=== PATIENT | male | born 1950 | race Caucasian/White ===

== ENCOUNTER 2019-03-30 20:56 | Inpatient (IN) | payer MEDICARE, SELFPAY ==
--- NOTE | ~2019-03-30 | XR_ITS ---
XR chest 1V portable 03/30/2019 22:05 Indication: Shortness of breath, vomiting Procedure: AP view of the chest Comparison: Comparison to multiple prior studies sequentially, with oldest reviewed study dated 01/27. Findings: Status post median sternotomy for CABG. Cardiomegaly. Small right pleural effusion. Right b asilar airspace disease may represent atelectasis or pneumonia. No pneumothorax. Impression: 1: Right basilar airspace disease, atelectasis versus pneumonia. 2: Small right pleural effusion. Reviewed, dictated and finalized at location A. EWATER ENGINEER Impression: 1: Right basilar airspace disease, atelectasis versus pneumonia. 2: Small right pleural effusion.
--- NOTE | ~2019-03-30 | US_ITS ---
US right upper quadrant, US paracentesis abd w/image INDICATION: Elevated liver function tests. Hepatic steatosis. Ascites. PROCEDURE: Realtime right upper abdominal ultrasound. COMPARISON: No prior studies for comparison. FINDINGS: The pancreas is normal without focal mass or pancreatic ductal dilation. Liver echotexture is increased, consistent with fatty infiltration. There is normal directional flow in the portal ve in. There is a small amount of ascites no fluid collections large enough for paracentesis. Gallbladder surgically absent. Common bile duct measures 4.8 mm. IMPRESSION: 1: Hepatic steatosis. 2: Status post cholecystectomy. 3: Small amount of ascites. Volume insufficient for paracentesis. Consider recheck of fluid and 3-4 d ays. Reviewed, dictated and finalized at location A. CARRIER MAINTENANCE INSPECTOR IMPRESSION: 1: Hepatic steatosis. 2: Status post cholecystectomy. 3: Small amount of ascites. Volume insufficient for paracentesis. Consider rech petrona of fluid and 3-4 days.
--- NOTE | ~2019-03-30 | XR_ITS ---
XR chest 2V 04/01/2019 12:23 Indication: Cough Procedure: 2 view chest Comparison: Comparison to multiple prior studies sequentially, with oldest reviewed study dated 02/13. Findings: Status post median sternotomy for CABG. Right basilar airspace disease. Bilateral pleural e ffusions, right greater than left. Cardiomegaly. There is a coronary stent. Impression: 1: Right basilar airspace disease, pneumonia versus atelectasis. 2: Small pleural effusions, right greater than left. 3: Cardiomegaly. Reviewed, dictated and finalized at location A. ANICAL SOUND TECHNICIAN Impression: 1: Right basilar airspace disease, pneumonia versus atelectasis. 2: Small pleural effusions, right greater than left. 3: Cardiomegaly.
--- NOTE | ~2019-03-30 | CT_ITS ---
EXAMINATION: CT abdomen pelvis w con DATE: 03/30/2019 21:56 INDICATION: Abdominal pain with nausea and vomiting TECHNIQUE: Computed tomography (CT) of the abdomen and pelvis was performed with 100 cc Omnipaque 350 intravenous contrast. The dose-length product was 951.86 mGy-cm. Automated exposure control and iter ative reconstruction technique were employed. COMPARISON: CT dated 01/28/2017 FINDINGS: Moderate right and small left pleural effusions. There is underlying compressive atelectasi s. Status post median sternotomy for CABG. No evidence for aortic aneurysm. There is moderate ascites. There is diffuse hepatic steatosis. There are calcified granulomas of the spleen. The pancreas, adrenal glands and right kidney are unremarkable. There is a 3 cm left renal [address]. Status post cholecystectomy. No free air identified. No lymphadenopathy. There is posterior spinal fu jefferson at L4-S1. IMPRESSION: 1. Moderate right and small left pleural effusions. Bibasilar compressive atelectasis. 2: Moderate ascites. 3: Hepatic steatosis. 4: Cardiomegaly. Surgical changes are seen consistent with CABG. Reviewed, dictated and finalized at location A. LE DATA WAREHOUSE DEVELOPER IMPRESSION: 1. Moderate right and small left pleural effusions. Bibasilar compressive atele ctasis. 2: Moderate ascites. 3: Hepatic steatosis. 4: Cardiomegaly. Surgical changes are seen consistent with CABG.
--- NOTE | ~2019-03-30 | US_ITS ---
EXAMINATION: US carotid duplex BI DATE: 03/31/2019 15:47 INDICATION: Abnormal examination. Atherosclerosis. TECHNIQUE: Grayscale, color Doppler, and pulsed Doppler images of the cervical carotid arteries were obtained. The degree of vessel stenosis is placed in one of the following categories: normal, <50%, 5 0-69%, >=70% but less than near-occlusion, near-occlusion, or total occlusion. Note that percent sten osis relative to normal distal artery lumen diameter is indirectly measured from velocity measurement s as described by Jalil, et al. Radiology 2003; 229:340-346. Notes: Normal: Peak systolic velocity <125 centimeters/sec and no plaque <50%. Peak systolic velocity <125 ( EDV <40; ICA/CCA PSV ratio <2.0; used these factors only a tandem lesions or low cardiac output or co ntralateral disease) 50-69 %: PSV 125-230 (EDV 40-100; ratio 2-4) >= 70% but less than near occlusion: PSV greater than 230 (EDV > 100; ratio> 4.0) Near Occlusion: PSV that is variable; markedly narrowed lumen Occlusion: Absent flow on color/spectral Doppler and no lumen on hernandez scale. COMPARISON: No prior studies for comparison FINDINGS: RIGHT: The right common carotid artery (CCA) peak systolic velocity (PSV) is 60 cm/s. The right internal car otid artery (ICA) PSV is 57 cm/s. The right ICA end-diastolic velocity (EDV) is 0 cm/s. The right ICA /CCA PSV ratio is 0.9. The external carotid artery (ECA) PSV is 110 cm/s. There is antegrade flow in the right vertebral artery. LEFT: The left CCA PSV is 74 cm/s. The left ICA PSV is 83 cm/s. The left ICA EDV is 11 cm/s. The left ICA/C CA PSV ratio is 1.1. The ECA PSV is 102 cm/s. There is antegrade flow in the left vertebral artery. IMPRESSION: 1. Less than 50% stenosis in the right internal carotid artery by sonographic criteria. 2. Less than 50% stenosis in the left internal carotid artery by sonographic criteria. Reviewed, dictated and finalized at location A. OMER SERVICE CONSULTANT IMPRESSION: 1. Less than 50% stenosis in the right internal carotid artery by sonographic dane ornelas. 2. Less than 50% stenosis in the left internal carotid artery by sonographic talib bernal.
--- NOTE | ~2019-03-30 | XR_ITS ---
XR abdomen obstructive series 04/01/2019 12:23 Indication: Abdominal distention Procedure: Supine and upright views of abdomen Comparison: 12/16/2008 Findings: There is residual contrast in the kidneys from CT dated 03/30/2019. Correlate clinically fo r renal failure. There are laminectomy and fusion changes at L5-S1. There is a small amount of residu al contrast in the bladder. Bowel pattern is nonobstructive. There is a right pleural effusion. Right basilar airspace consolidation. Impression: 1: Nonobstructive bowel gas pattern. 2: Residual contrast in the kidneys from previous CT. Correlate clinically for renal failure. 3: Right basilar airspace disease which may represent pneumonia or atelectasis. 4: Small right pleural effusion. Reviewed, dictated and finalized at location A. ITY CONTROL EXPERT Impression: 1: Nonobstructive bowel gas pattern. 2: Residual contrast in the kidneys from previous CT. Correlate clinically for renal failure. 3: Right basilar airspace disease which may represent pneumonia or atelectasis . 4: Small right pleural effusion.
[2019-03-30 21:08] VITALS: PULSE 65; RESP 22; TEMP 36.1; O2SAT 100
--- NOTE | 2019-03-30 21:08 | ECG_ITS ---
Measurements Intervals [place] Rate: 60 P: 62 VT: 241 QRS: 216 QRSD: 178 T: 31 QT: 477 QTc: 480 Interpretive Statements SINUS RHYTHM WITH FIRST DEGREE AV BLOCK RIGHT BUNDLE BRANCH BLOCK BASELINE ARTIFACT- AVR, AVL, AVF, V4 ABNORMAL ECG Electronically Signed On 03-31-2019 7:33:51 PROMOTIONS DIRECTOR by Giacomo Reich D.O.
--- NOTE | 2019-03-30 21:09 | ED.GENADULT ---
HPI - General Adult General Chief complaint: Nausea/Vomiting/Diarrhea Stated complaint: SOB, VOMITING Time Seen by Provider: 03/30/19 21:06 Source: patient and RN notes reviewed Mode of arrival: ambulatory Limitations: no limitations History of Present Illness HPI narrative: Pt is a 68 y/o male presenting to the ED c/o N/V. Pt reports he started experiencing N/V around 1700 this evening. Pt also reports SOB, but denies diarrhea or abdominal pain. Pt states his last BM was at 0300 this afternoon. Pt notes he sees Dr. Jerome as his PCP and denies being a smoker. Onset (ago): hour(s) (4.25) Associated symptoms: shortness of breath Related Data Home Medications Medication Instructions Recorded Confirmed amlodipine 10 mg PO DAILY 03/31/19 03/31/19 atorvastatin 80 mg PO HS 03/31/19 03/31/19 carbamazepine 200 mg PO Q12H 03/31/19 03/31/19 carvedilol 25 mg PO BID 03/31/19 03/31/19 clopidogrel 75 mg PO DAILY 03/31/19 03/31/19 empagliflozin [Jardiance] 10 mg PO EVERY OTHER DAY 03/31/19 03/31/19 fenofibrate 160 mg PO DAILY 03/31/19 03/31/19 furosemide 40 mg PO BID 03/31/19 03/31/19 isosorbide mononitrate 60 mg PO DAILY 03/31/19 03/31/19 lisinopril 40 mg PO QPM 03/31/19 03/31/19 metformin 500 mg PO BID 03/31/19 03/31/19 nitroglycerin 0.4 mg SUBLINGUAL Q5M PRN 03/31/19 03/31/19 rivaroxaban [Xarelto] 20 mg PO QPM 03/31/19 03/31/19 Allergies Allergy/AdvReac Type Severity Reaction Status Date / Time latex Allergy Unknown Unknown Verified 03/30/19 21:16 Review of Systems Review of Systems: All systems reviewed & are unremarkable except as noted in HPI and below Respiratory: Respiratory: Reports dyspnea Gastrointestinal: Gastrointestinal: Denies abdominal pain, Denies diarrhea, Reports nausea and Reports vomiting PMFSH Past Medical History Medical History (Updated 03/31/19 @ 01:03 by Levi Ortiz DO) Arthritis (Acute) Atrial fibrillation (Acute) CAD (coronary artery disease) (Acute) Cataracts, bilateral (Acute) CHF (congestive heart failure) (Acute) Depression (Acute) Diabetes mellitus (Acute) Eczema (Acute) Glaucoma (Acute) HLD (hyperlipidemia) (Acute) HTN (hypertension) (Acute) Kidney stones (Acute) Myocardial infarct (Acute) Pneumonia (Acute) Rectal polyp (Acute) Seasonal allergies (Acute) Seizures (Acute) Skin cancer (Acute) Sleep apnea (Acute) Ulcer (Acute) Surgical History Surgical History (Updated 03/30/19 @ 21:19 by Matt Conn) H/O heart artery stent (Acute) H/O Spinal surgery (Acute) History of cholecystectomy (Acute) Hx of CABG (Acute) Hx of tonsillectomy (Acute) Family History Family History (Updated 03/31/19 @ 00:58 by Ruby Cortes RN) Sibling Family history of diabetes mellitus in first degree relative Father Heart disease Acute myocardial infarction Hypertension Mother Breast cancer Social History Social History (Updated 03/30/19 @ 21:20 by Matt Conn) Smoking packs per day: 1 Smoking cigarettes per day: 20.0 Years smoked: 40 Smoking pack-years: 40.00 Smoking status: Former smoker Second hand tobacco smoke exposure: Yes Alcohol intake: current Exam Narrative: Exam Narrative: APPEARANCE: No acute distress, nontoxic, resting in bed EYES: EOMI HEENT: Normocephalic, atraumatic, OMM crackles in the bilateral lung bases, no wheezing clear to auscultation bilaterally with no rhonchi wheezing or rales. CARDIOVASCULAR: Regular rate and rhythm without murmurs rubs or gallops. ABDOMINAL: Soft, tender to palpation in right upper quadrant right lower quadrant, no tenderness left upper quadrant left lower quadrant MUSCULOSKELETAl: Moves all extremities. No clubbing, cyanosis 3+ edema in the bilateral lower extremities NEURO: Awake and alert. Following commands, speech normal, no focal deficits SKIN:: Warm, dry. No rashes lesions or abrasions PSYCHIATRIC: Normal affect/mood, Course Course Emergency Course: Reviewed old records Discussed with patient and family
[2019-03-30] MEDS: ONDANSETRON INJ 4 MG/2 ML VIAL IV PUSH (21:23)
[2019-03-30 21:24] LABS: Basophils Absolute Auto 0.1 K/mm3 (0.0-0.1); Basophils Percent Auto 1.1 % (0.2-1.2); Eosinophils Absolute Auto 0.3 K/mm3 (0-0.3); Eosinophils Percent Auto 3.2 % (0-4.4); Hematocrit 48.6 % (42.0-52.0); Hemoglobin 15.6 g/dL (14.0-18.0); Immature Granulocyte Absolute 0.03 K/mm3 (0.00-0.031); Immature Granulocyte Percent A 0.3 % (0-0.5); Lymphocytes Absolute Auto 1.36 K/mm3 (0.9-3.2); Mean Corpuscular HGB Conc 32.1 g/dl (32-36); Mean Corpuscular Hemoglobin 29.5 pg (26-34); Mean Corpuscular Volume 91.9 fl (80-100); Mean Platelet Volume 12.4 fl (7.4-10.4); Monocytes Absolute Auto 1.2 K/mm3 (0.1-0.6); Monocytes Percent Auto 12.6 % (2.6-8.5); Neutrophils Absolute Auto 6.7 K/mm3 (1.3-6.7); Neutrophils Percent Auto 68.8 % (45.5-73.1); Platelet Count Result 296 k/mm3 (150-375); Red Blood Count 5.29 M/mm3 (4.6-6.20); Red Cell Distribution Width 16.6 % (11.5-14.5); White Blood Count 9.7 K/mm3 (4.5-10.0)
[2019-03-30] MEDS: SODIUM CHLORIDE 0.9% IV 1,000 ML 999 ML IV CONT (21:24)
[2019-03-30 21:36] LABS: Alanine Aminotransferase 61 U/L (4-50); Albumin Level 4.1 g/dL (3.5-5.1); Alkaline Phosphatase 126 U/L (38-126); Aspartate Amino Transferase 154 U/L (17-59); Bilirubin,Total 1.3 mg/dL (0.2-1.3); Blood Urea Nitrogen 26 mg/dL (9-20); Calcium 9.2 mg/dL (8.4-10.2); Carbon Dioxide 25 mmol/L (22-30); Chloride 98 mmol/L (98-107); Estimated CRCL calculation 34 ml/min; Estimated Glomerular Filt Rate 43; Glucose 127 mg/dL (75-110); Lipase 183 U/L (23-300); Sodium 139 mmol/L (137-145)
[2019-03-30 21:37] LABS: INR 1.7; Prothrombin Time 19.7 Seconds (11.1-14.7)
[2019-03-30 21:38] LABS: Partial Thromboplastin Time 29.2 SECONDS (22.3-36.8)
[2019-03-30 21:46] LABS: Add Urine Microscopic? YES; Appearance Urine Clear (Clear); Bacteria Urine Trace /hpf; Bilirubin Urine Negative (Negative); Blood Urine Negative (Negative); Color Urine Yellow (Yellow); Glucose Urine UA 3+ mg/dL (Negative); Hyaline Casts Urine 30-49 /lpf; Ketones Urine Negative (Negative); Leukocyte Esterase Ur Negative LEU/UL (Negative); Mucus Urine Rare /lpf; Nitrate Urine Negative (Negative); Protein Urine 2+ mg/dL (Negative); RBC Urine 0-2 /hpf (0-2); Squamous Epithelial Cell Urine Rare /hpf (Few); WBC Urine 0-3
[2019-03-30 21:51] LABS: Troponin I 0.039 ng/mL (0.000-0.034)
[2019-03-30 22:18] VITALS: BP 106/61; PULSE 60; RESP 20; O2SAT 92
[2019-03-30 22:22] LABS: NT Pro B Type Natriuretic Pept 14000 PG/ML (5-100)
[2019-03-30 23:11] VITALS: BP 102/51; PULSE 62; RESP 20; O2SAT 85
[2019-03-30 23:12] VITALS: PULSE 62; RESP 20; O2SAT 96
[2019-03-30] MEDS: FUROSEMIDE INJ 40 MG/4 ML VIAL IV PUSH (23:16)
[2019-03-30] MEDS: ASPIRIN 81 MG CHEWABLE TABLET 324 MG PO (23:16)
[2019-03-30 23:44] VITALS: BP 102/51; PULSE 63; RESP 22; O2SAT 96
[2019-03-31] VITALS (19 sets, daily range): BP systolic 98–109; BP diastolic 53–61; PULSE 53–67; RESP 16–20; TEMP 36.1–37.3; O2SAT 96–99; BMI 29.2
--- NOTE | 2019-03-31 | ECHO_ITS ---
Patient Info Name: Landon Xiong Age: 68 years : 1950 Gender: Male Ht: 65 in Wt: 175 lbs BSA: 1.93 m2 HR: 66 bpm BP: 109 / 61 mmHg Technical Quality: Excellent Exam Date: 03/31/2019 12:49 PM Exam Location: [facility] Patient Status: Inpatient Admit Date: 03/30/2019 Staff Ordering Physician: Yuval Choudhury MD [employer] Police Officer: Rita Dennis RDCS Attending Provider: Yuval Choudhury MD Exam Type: CA echo dop color flow w con Study Info Indications I50.22 - Chronic systolic (congestive) heart failure Complete two-dimensional, color flow and Doppler transthoracic echocardiogram is performed with contrast to opacify the left ventricle and to improve the deliniation of the left ventricle endocardial borders. Contrast/Agitated Saline Contrast/Ag. Saline: Definity Amount: 2.00 ml Administered By: Ariane Mar RN IV Access Condition: patent with no signs of infiltration Site Condition: No extravasation Prior Interventions CABG: Yes Summary 1. Patient has prior CABG. 2. Left ventricular systolic function is severely reduced, estimated at 20-25%. 3. Global hypokinesia and Akinesia of inf \T\ inferolaterall mack and apical anterolateral wall. 4. Right ventricular chamber dimension is enlarged. 5. Right ventricular systolic function is reduced. 6. Left atrial chamber dimension is severely enlarged. 7. There is moderate aortic valve regurgitation. 8. There is moderate tricuspid valve regurgitation. 9. Mild pulmonary hypertension, estimated pulmonary arterial systolic pressure is 45 mmHg. 10. Dilated inferior vena cava with >50% collapse upon inspiration consistent with elevated right atrial pressure, 10 mmHg. Left Ventricle Left ventricular chamber dimension is mildly enlarged. Left ventricular systolic function is severely reduced, estimated at 20-25%. There is no increased left ventricular wall thickness. The left ventricular diastolic function is grade III diastolic dysfunction. Global hypokinesia and Akinesia of inf \T\ inferolaterall mack and apical anterolateral wall. Right Ventricle Right ventricular chamber dimension is enlarged. Right ventricular systolic function is reduced. Left Atria Left atrial chamber dimension is severely enlarged. Right Atria Right atrial chamber dimension is enlarged. Aortic Valve The aortic valve is trileaflet. There is mild aortic valve sclerosis. There is no aortic valve stenosis. There is moderate aortic valve regurgitation. Pulmonic Valve The pulmonic valve is normal. There is no pulmonic valve stenosis. There is no pulmonic regurgitation. Mitral Valve The mitral valve has normal leaflets. There is no mitral valve stenosis. There is mild mitral valve regurgitation. Tricuspid Valve The tricuspid valve leaflets are normal. There is no significant tricuspid valve stenosis. There is moderate tricuspid valve regurgitation. Mild pulmonary hypertension, estimated pulmonary arterial systolic pressure is 45 mmHg. Pericardium/Pleural The pericardium appears normal. There is no pericardial effusion. Inferior Vena Cava Dilated inferior vena cava with >50% collapse upon inspiration consistent with elevated right atrial pressure, 10 mmHg. Aorta The aortic root size at the sinus of Valsalva is normal. The prox ascending aorta size is normal. Left Ventricular Outflow Tract
--- NOTE | 2019-03-31 01:00 | PC.NURSE ---
This patient, Landon Xiong, was admitted to IMU Room 207-01, arrived at 0000 03/31/19 Patient oriented to hospital policies and general routines including ID bracelet, bed and alarms, visiting hours, pain management, procedures, bathroom and other care routines, personal items, smoking policy, room service/diet, and visiting hours. Valuables list has been completed. Patient encouraged to report perceived risks to care and to ask questions if they do not understand what they are told or what they should do.
[2019-03-31 02:21] LABS: Troponin I 0.044 ng/mL (0.000-0.034)
[2019-03-31 03:48] LABS: Basophils Percent Auto 0.3 % (0.2-1.2); Eosinophils Percent Auto 0.1 % (0-4.4); Immature Granulocyte Absolute 0.05 K/mm3 (0.00-0.031); Immature Granulocyte Percent A 0.5 % (0-0.5); Lymphocytes Absolute Auto 0.82 K/mm3 (0.9-3.2); Lymphocytes Percent Auto 7.9 % (18.3-44.2); Mean Corpuscular HGB Conc 32.5 g/dl (32-36); Mean Corpuscular Hemoglobin 29.3 pg (26-34); Mean Corpuscular Volume 90.3 fl (80-100); Mean Platelet Volume 12.6 fl (7.4-10.4); Monocytes Absolute Auto 1.4 K/mm3 (0.1-0.6); Monocytes Percent Auto 13.8 % (2.6-8.5); Neutrophils Absolute Auto 8.1 K/mm3 (1.3-6.7); Neutrophils Percent Auto 77.4 % (45.5-73.1); Platelet Count Result 245 k/mm3 (150-375); Red Blood Count 4.43 M/mm3 (4.6-6.20); Red Cell Distribution Width 16.2 % (11.5-14.5); White Blood Count 10.4 K/mm3 (4.5-10.0)
[2019-03-31 04:08] LABS: Albumin Level 3.3 g/dL (3.5-5.1); Alkaline Phosphatase 118 U/L (38-126); Bilirubin,Total 1.4 mg/dL (0.2-1.3); Blood Urea Nitrogen 28 mg/dL (9-20); Calcium 8.5 mg/dL (8.4-10.2); Carbon Dioxide 29 mmol/L (22-30); Chloride 99 mmol/L (98-107); Estimated CRCL calculation 36 ml/min; Estimated Glomerular Filt Rate 46; Glucose 182 mg/dL (75-110); Potassium 3.7 mmol/L (3.4-5.0); Sodium 138 mmol/L (137-145)
[2019-03-31 04:10] LABS: Troponin I 0.044 ng/mL (0.000-0.034)
[2019-03-31 04:42] LABS: Alanine Aminotransferase 1183 U/L (4-50); Aspartate Amino Transferase 3402 U/L (17-59)
[2019-03-31 08:35] LABS: Glucose Point of Care 141 (65-105)
[2019-03-31] MEDS: FENOFIBRATE 160 MG TABLET PO (09:04)
[2019-03-31] MEDS: CLOPIDOGREL BISULFATE 75 MG TABLET PO (09:04)
[2019-03-31] MEDS: carBAMazepine 200 MG TABLET PO (09:04)
[2019-03-31] MEDS: ISOSORBIDE MONONITRATE 60 MG TAB.ER.24H PO (09:04)
[2019-03-31] MEDS: AMLODIPINE BESYLATE 5 MG TABLET 10 MG PO (09:04)
[2019-03-31] MEDS: carvediloL 25 MG TABLET PO ×2 (09:04→20:18)
--- NOTE | 2019-03-31 09:42 | PM.IMHP ---
H&P: HPI History of Present Illness Chief complaint: chf elevated troponin nausea vomiing Narrative: Landon Xiong is a 68 year old male with CAD and CHF here for SOB and n/v. Patient underwent CABG x4 in 2005 (ALEKSANDRA to LAD. Saphenous vein graft to diagonal. Saphenous vein graft to circumflex obtuse marginal.). In 2016, he underwent PTCA/STENT to the proximal segment of OM SVG, distal RCA graft anastomosis, and the proximal RCA graft anastomosis. More recnetly in August 2018, he underwent PCI of the saphenous vein graft to the diagonal. Post procedure in August, he developed AFib. He was treated approprately and ultimately underwent cardioversion in November 2018. Over the past 3 weeks, patient has had 'cold symptoms' that have worsened over the past week. He is having a cough productive of yellow sputum, rhinorrhea, postnasal drainage, dry mouth and sinus symptoms. Patient states that he has SOB since August. It improved for awhile with the CPAP helping (he started CPAP 2 months ago). SOB however has worsened over the past 2 weeks. He took some cough syrup but has not been on antibiotics. He has had a pruritic rash in the back of his neck and stomach for the past 2 weeks he did see an improvement specialist 1 week ago who prescribed a steroid cream. He has been having early satiety and abdominal bloating after eating but normal bowel movements. Patient has been feeling lightheaded over the past few days. On the morning of 03/30/2019, patient had a banana for breakfast but denied any symptoms at that time. As the day progressed, patient developed nausea and ultimately vomiting of bilious material. He had not anything for remainder of the day. He did not take his home medications. That evening his systolic blood pressure was 100. He presented emergency room further evaluation. Patient was hemodynamically stable. Patient is noted have acute kidney injury and elevated liver enzymes including and INR 1.7 ( patient is on Xarelto). troponins also were elevated as was his BNP. EKG showed no acute findings. Chest x-ray showed atelectasis in the right base. CT of the abdomen pelvis showed moderate right and small left pleural effusions with moderate ascites and hepatic steatosis. patient admitted for further care. No vision changes or eye pain. No otalgia, hemoptysis, fevers, chills, chest pain, dysuria, hematuria, back pain, diarrhea, melena, hematochezia or palpitations. No significant orthopnea but does state he has shortness of breath when lying flat because of his abdominal girth. patient is not O2 dependent. Review of Systems Review of Systems: Narrative: check glucose 3 times a week normally runs less than 120. He had a seizure in his 40s but nothing since. He denies depression and this was removed from his medical history. He denies any depression Or anxiety symptoms. All systems reviewed & are unremarkable except as noted in HPI and below PMFSH Past Medical History Medical History (Updated 03/31/19 @ 11:06 by Kobi Patterson MD) Atrial fibrillation (Acute) CAD (coronary artery disease) (Acute) Cataracts, bilateral (Acute) CHF (congestive heart failure) (Acute) Diabetes mellitus (Acute) Eczema (Acute) Hepatic steatosis (Acute) HLD (hyperlipidemia) (Acute) HTN (hypertension) (Acute) Kidney stones (Acute) Myocardial infarct (Acute) Pneumonia (Acute) Rectal polyp (Acute) Seasonal allergies (Acute) Seizures (Acute) Skin cancer (Acute) Sleep apnea (Acute) Ulcer (Acute) Surgical History Surgical History (Updated 03/30/19 @ 21:19 by Matt Conn) H/O heart artery stent (Acute) H/O Spinal surgery (Acute) History of cholecystectomy (Acute) Hx of CABG (Acute) Hx of tonsillectomy (Acute) Family History Family History (Updated 03/31/19 @ 00:58 by Ruby Cortes RN) Sibling Family history of diabetes mellitus in first degree relative Father Heart disease Acute myocardial infarction Hypertension Mother Breast cancer
--- NOTE | 2019-03-31 10:50 | PM.CNCAR ---
Assessment and Plan Assessment and plan (1) CHF (congestive heart failure): Qualifiers: Heart failure chronicity: acute on chronic Heart failure type: unspecified Qualified Code(s): I50.9 - Heart failure, unspecified Code(s): I50.9 - Heart failure, unspecified Status: Acute Assessment and Plan: acute on chronic CHF, likely systolic heart failure but no records of prior EF, CHARITO, plan cont on Lasix 40 mg IV BID, cont carvidelol, hold ACEI until CHARITO resolve (2) Atrial fibrillation: Code(s): I48.91 - Unspecified atrial fibrillation Status: Acute Assessment and Plan: currently in sinus rhythm, plan cont on Xarelto (3) Elevated troponin: Code(s): R79.89 - Other specified abnormal findings of blood chemistry Status: Acute Assessment and Plan: likely related to CHF and underlying Chronic CAD, recent PCI to LCX in August, CHILDREN TEACHER of RCA and plan serial trop, cont ASA, plavix, statin and carvidelol History of Present Illness History of Present Illness Consult date/time: 03/31/19 10:50 Consult reason: congestive heart failure Chief complaint: chf elevated troponin nausea vomiing Narrative: Patient presented with one week Hx of progressive severe SOB worse with mild activity and lying down, better with rest and sitting, He had Hx of chronic SOB since August that improved with medication adjustment and got worse recently following episode of chest infection and common with cough and green sputum, sore throat and runny nose. No fever or chills. No associated chest pain or palpitations. Hx of CABG 2005 and PCI to CHILDREN TEACHER LCX and unsuccessful PCI to RCA CHILDREN TEACHER in August 2018 at [facility], patent DSOUZA butapicall LAD CHILDREN TEACHER. no change in symptoms after intervention, Review of Systems Review of Systems: All systems reviewed & are unremarkable except as noted in HPI and below PMFSH Past Medical History Medical History (Updated 03/31/19 @ 11:06 by Kobi Patterson MD) Atrial fibrillation (Acute) CAD (coronary artery disease) (Acute) Cataracts, bilateral (Acute) CHF (congestive heart failure) (Acute) Diabetes mellitus (Acute) Eczema (Acute) Hepatic steatosis (Acute) HLD (hyperlipidemia) (Acute) HTN (hypertension) (Acute) Kidney stones (Acute) Myocardial infarct (Acute) Pneumonia (Acute) Rectal polyp (Acute) Seasonal allergies (Acute) Seizures (Acute) Skin cancer (Acute) Sleep apnea (Acute) Ulcer (Acute) Surgical History Surgical History (Updated 03/30/19 @ 21:19 by Matt Conn) H/O heart artery stent (Acute) H/O Spinal surgery (Acute) History of cholecystectomy (Acute) Hx of CABG (Acute) Hx of tonsillectomy (Acute) Family History Family History (Updated 03/31/19 @ 00:58 by Ruby Cortes RN) Sibling Family history of diabetes mellitus in first degree relative Father Heart disease Acute myocardial infarction Hypertension Mother Breast cancer Social History Social History (Updated 03/30/19 @ 21:20 by Matt Conn) Smoking packs per day: 0.1 Smoking cigarettes per day: 2.0 Years smoked: 10 Smoking pack-years: 1.00 Smoking status: Former smoker Second hand tobacco smoke exposure: Yes Additional smoking assessment comments: Pt states he would smoke 1 pack over the weekend when drinking Alcohol intake: former Substance use: never Other substance usage details: Used to drink more heavily, has maybe 1-2 drinks per month Spiritual care concerns: No Meds Home Medications and Allergies Home Medications Medication Instructions Recorded Confirmed Type amlodipine 10 mg PO DAILY 03/31/19 03/31/19 History atorvastatin 80 mg PO HS 03/31/19 03/31/19 History carbamazepine 200 mg PO Q12H 03/31/19 03/31/19 History carvedilol 25 mg PO BID 03/31/19 03/31/19 History clopidogrel 75 mg PO DAILY 03/31/19 03/31/19 History empagliflozin [Jardiance] 10 mg PO EVERY OTHER DAY 03/31/19 03/31/19 History fenofibrate 160 mg PO DAILY 03/31/19 03/31/19 Hi
[2019-03-31 11:40] LABS: Amylase 44 U/L (30-110)
[2019-03-31 11:42] LABS: Influenza Control Positive
[2019-03-31 11:50] LABS: Hepatitis B Surface Antigen Negative (Negative)
[2019-03-31 11:51] LABS: Lactate Dehydrogenase 5367 U/L (313-618)
[2019-03-31 11:56] LABS: HAV RESULT Negative (Negative); Hepatitis B Core IgM Result Negative (Negative)
[2019-03-31 12:07] LABS: Hepatitis C Virus Antibody Negative (Negative)
[2019-03-31] MEDS: THIAMINE HCL 100 MG TABLET PO (12:14)
[2019-03-31] MEDS: FOLIC ACID 1 MG TABLET PO (12:14)
[2019-03-31 12:45] LABS: Glucose Point of Care 174 (65-105)
[2019-03-31 17:08] LABS: Glucose Point of Care 127 (65-105)
[2019-03-31] MEDS: RIVAROXABAN 15 MG TABLET PO (17:22)
[2019-03-31] MEDS: FUROSEMIDE INJ 40 MG/4 ML VIAL IV PUSH (17:22)
[2019-03-31 20:50] LABS: Glucose Point of Care 177 (65-105)
[2019-03-31] MEDS: GUAIFENESIN/DEXTROMETHORPHAN 10 ML UDC PO (23:19)
[2019-04-01] VITALS (19 sets, daily range): BP systolic 99–135; BP diastolic 54–90; PULSE 53–89; RESP 20–23; TEMP 36.1–36.6; O2SAT 95–98
[2019-04-01 04:53] LABS: Basophils Absolute Auto 0.1 K/mm3 (0.0-0.1); Basophils Percent Auto 0.9 % (0.2-1.2); Eosinophils Absolute Auto 0.6 K/mm3 (0-0.3); Eosinophils Percent Auto 7.3 % (0-4.4); Hematocrit 41.3 % (42.0-52.0); Hemoglobin 13.2 g/dL (14.0-18.0); Immature Granulocyte Absolute 0.03 K/mm3 (0.00-0.031); Immature Granulocyte Percent A 0.4 % (0-0.5); Lymphocytes Absolute Auto 1.27 K/mm3 (0.9-3.2); Mean Corpuscular Hemoglobin 28.7 pg (26-34); Mean Corpuscular Volume 89.8 fl (80-100); Mean Platelet Volume 12.4 fl (7.4-10.4); Monocytes Absolute Auto 1.2 K/mm3 (0.1-0.6); Monocytes Percent Auto 14.9 % (2.6-8.5); Neutrophils Absolute Auto 4.8 K/mm3 (1.3-6.7); Neutrophils Percent Auto 60.5 % (45.5-73.1); Platelet Count Result 255 k/mm3 (150-375); Red Cell Distribution Width 16.1 % (11.5-14.5); White Blood Count 7.9 K/mm3 (4.5-10.0)
[2019-04-01 05:05] LABS: INR 3.1; Prothrombin Time 31.6 Seconds (11.1-14.7)
[2019-04-01 05:11] LABS: Albumin Level 3.3 g/dL (3.5-5.1); Alkaline Phosphatase 115 U/L (38-126); Bilirubin Indirect 0.3 mg/dL (0-1.1); Bilirubin,Total 1.1 mg/dL (0.2-1.3); Blood Urea Nitrogen 43 mg/dL (9-20); Calcium 8.4 mg/dL (8.4-10.2); Carbon Dioxide 29 mmol/L (22-30); Chloride 97 mmol/L (98-107); Estimated CRCL calculation 23 ml/min; Estimated Glomerular Filt Rate 24; Glucose 144 mg/dL (75-110); Potassium 4.3 mmol/L (3.4-5.0); Sodium 135 mmol/L (137-145)
[2019-04-01 05:49] LABS: Alanine Aminotransferase 1626 U/L (4-50); Aspartate Amino Transferase 3660 U/L (17-59)
[2019-04-01 08:17] LABS: Glucose Point of Care 135 (65-105)
[2019-04-01] MEDS: FOLIC ACID 1 MG TABLET PO (09:31)
[2019-04-01] MEDS: THIAMINE HCL 100 MG TABLET PO (09:31)
[2019-04-01] MEDS: CLOPIDOGREL BISULFATE 75 MG TABLET PO (09:31)
[2019-04-01] MEDS: carvediloL 25 MG TABLET PO (09:31)
[2019-04-01] MEDS: ISOSORBIDE MONONITRATE 60 MG TAB.ER.24H PO (09:31)
[2019-04-01] MEDS: GUAIFENESIN/DEXTROMETHORPHAN 10 ML UDC PO (09:33)
--- NOTE | 2019-04-01 11:19 | PM.IMPN ---
Progress Note: A&P Assessment and Plan (1) CHF (congestive heart failure): Qualifiers: Heart failure chronicity: acute on chronic Heart failure type: unspecified Qualified Code(s): I50.9 - Heart failure, unspecified Code(s): I50.9 - Heart failure, unspecified Status: Acute (2) Elevated troponin: Code(s): R79.89 - Other specified abnormal findings of blood chemistry Status: Acute (3) Nausea and vomiting: Qualifiers: Vomiting Intractability: non-intractable Vomiting type: unspecified Qualified Code(s): R11.2 - Nausea with vomiting, unspecified Code(s): R11.2 - Nausea with vomiting, unspecified Status: Acute (4) Atrial fibrillation: Code(s): I48.91 - Unspecified atrial fibrillation Status: Acute (5) Elevated liver enzymes: Code(s): R74.8 - Abnormal levels of other serum enzymes Status: Acute (6) Hepatic steatosis: Code(s): K76.0 - Fatty (change of) liver, not elsewhere classified Status: Acute (7) Acute kidney injury: Code(s): N17.9 - Acute kidney failure, unspecified Status: Acute (8) Ascites: Code(s): R18.8 - Other ascites Status: Acute (9) Sleep apnea: Code(s): G47.30 - Sleep apnea, unspecified Status: Acute (10) Diabetes mellitus: Code(s): E11.9 - Type 2 diabetes mellitus without complications Status: Acute (11) CAD (coronary artery disease): Code(s): I25.10 - Atherosclerotic heart disease of [place] coronary artery without angina pectoris Status: Acute Additional Plan Patient had echocardiogram in November 2018 showing posterior akinesis and EF of 25-30%. Echo here is pending. Carotid US normal. RUQ US showing hepatic stetosis but no cirrhosis. Ascites is actually minimal and not enough or paracentesis. Normal portal flow (doubt thrombosis anyway given that he is on Xarelto). Cr much worse today either due that he is dehydrated or that his EF is extremely low resulting in hypoperfusion (related to decrease preload). Consider also hepato-renal syndrome but more concerned thia is cardiac in nature. He drinks excessive amounts of alcohol (no drinks x 2 weeks per patient) which could have had a myotoxic effect on the heart muscle. Currently on Thiamine and Folate. Librium is available as well. Liver enzymes are worse as well but may be peaking. Influenza and Hepatitis panel negative. INR noted so Xarelto stopped. Will consult GI. Tegretol on hold. Patient toelrating current diet. Will repeat xray to exclude ileus and also repeat CXR given the persistent cough. Check sputum but contineu to hold abx. LDH very high probably related to the liver dysfunction. Appreciate [employer] input. Subjective Interval history: 68yo male here for CHF exacerbation and elevated LFTs. Still having cough productive of green sputum. No cp. Appetiite decreased but no n/v. No fever or chills. Still feels SOB. Also with abd distention and bloating and fullness in the lower abdomen. Family at bedside and they were updated with patient permission Exam Narrative: Exam Narrative: Gen - NARD sitting up in chair Chest - distant BS with scattered rhonchi, nml RR CV - Irregularly irregular. S1-S2. Tele showing AFib and NSR with first degree AVB Abd - firm. Protuberant. Positive bowel sounds. Nontender Ext - trace-1+ pedal edema Psych - Nml mood and affect; in good spirits Skin - warm and dry Objective Data Vital Signs Vital Signs: Vital Signs - 24 hr 03/31/19 12:00 03/31/19 12:39 03/31/19 14:00 Temperature 97.5 F L Pulse Rate 62 61 53 L Respiratory Rate 20 Blood Pressure 101/61 Pulse Oximetry 99 03/31/19 16:00 03/31/19 16:45 03/31/19 17:50 Temperature 97 F L Pulse Rate 55 L 57 L 57 L Respiratory Rate 20 Blood Pressure 98/57 L Pulse Oximetry 99 03/31/19 19:45 03/31/19 20:00 03/31/19 20:18 Temperature 98.4 F Pulse Rate 58 L
[2019-04-01 12:05] LABS: Glucose Point of Care 172 (65-105)
--- NOTE | 2019-04-01 12:49 | PM.PNCARD ---
Progress Note: A&P Assessment and Plan (1) CHF (congestive heart failure): Qualifiers: Heart failure chronicity: acute on chronic Heart failure type: unspecified Qualified Code(s): I50.9 - Heart failure, unspecified Code(s): I50.9 - Heart failure, unspecified Status: Acute Assessment and Plan: acute on chronic CHF, advanced ischemic dilated cardiomyopatthy, BiV failure, CHARITO likely cardiorenal syndrome (no response to diuretics) oliguria, plan start milrinone 0.125 mcg/kg/min, cont carvidelol, hold ACEI until CHARITO resolve. (2) Atrial fibrillation: Code(s): I48.91 - Unspecified atrial fibrillation Status: Acute Assessment and Plan: currently in sinus rhythm, but CHARITO and Xarelto is not suitable for current time, plan hold Xarelto until kidney function recover, start heparin tomorrow. (3) Elevated troponin: Code(s): R79.89 - Other specified abnormal findings of blood chemistry Status: Acute Assessment and Plan: likely related to CHF and underlying Chronic CAD, recent PCI to LCX in August, [employer] of RCA and plan serial trop, cont ASA, plavix, statin and carvidelol Subjective Interval history: seen for CHF SOB unchanged No significant increase in UOP with lasix Review of Systems Review of Systems: Narrative: SOB mild activity No chest pain No palpitation Easy fatigue Cough (dry) No fever or chills Exam Narrative: Exam Narrative: Neck: +Ve JVD, no swelling Cardiac: S1 S2 no systolic murmur at T area Chest: equal chest expansion, basal crackles LE: Edema + Bilateral and warm Objective Data Vital Signs Vital Signs: Vital Signs - 24 hr 03/31/19 14:00 03/31/19 16:00 03/31/19 16:45 Temperature 36.1 C L Pulse Rate 53 L 55 L 57 L Respiratory Rate 20 Blood Pressure 98/57 L Pulse Oximetry 99 03/31/19 17:50 03/31/19 19:45 03/31/19 20:00 Temperature 36.9 C Pulse Rate 57 L 58 L 58 L Respiratory Rate 18 Blood Pressure 101/53 L Pulse Oximetry 98 03/31/19 20:18 03/31/19 22:00 04/01/19 00:00 Temperature Pulse Rate 60 56 L 61 Respiratory Rate Blood Pressure Pulse Oximetry 04/01/19 02:00 04/01/19 04:00 04/01/19 06:00 Temperature 36.2 C L Pulse Rate 53 L 53 L 55 L Respiratory Rate 22 H Blood Pressure 99/56 L Pulse Oximetry 97 04/01/19 08:00 04/01/19 08:28 04/01/19 09:31 Temperature 36.1 C L Pulse Rate 65 61 63 Respiratory Rate 20 Blood Pressure 135/90 Pulse Oximetry 98 04/01/19 10:00 04/01/19 12:08 Temperature 36.3 C L Pulse Rate 63 63 Respiratory Rate 20 Blood Pressure 103/54 L Pulse Oximetry 98 Intake/Output Intake/Output: Intake & Output 03/29/19 03/30/19 03/31/19 04/01/19 23:59 23:59 23:59 23:59 Intake Total 700 1170 1490 Output Total 1250 Balance 700 -80 1490 Meds/Results Medications: Active Medications Generic Name Dose Route Start Last Admin Trade Name Freq PRN Reason Stop Dose Admin Carvedilol 25 mg 03/31/19 09:00 04/01/19 09:31 Coreg PO 25 mg Q12HR RUSH Administration Chlordiazepoxide HCl 25 mg 03/31/19 10:22 Librium Po PO Q6H PRN withdrawal/anxiety Clopidogrel Bisulfate 75 mg 03/31/19 09:00 04/01/19 09:31 Plavix PO 75 mg DAILY RUSH Administration Dextrose 12.5 gm 03/31/19 03:36 Dextrose 50% Syringe IV PUSH PRN PRN Hypoglycemia Protocol Folic Acid 1 mg 03/31/19 10:25 04/01/19 09:31 Folic Acid PO 1 mg DAILY RUSH Administration Glucagon 1 mg 03/31/19 03:36 Glucagon For Inj IM PRN PRN Hypoglycemia Protocol Glucose 15 gm 03/31/19 03:36 Glutose 15 PO PRN PRN Hypoglycemia Protocol Guaifenesin/Dextromethorphan 10 ml 03/31/19 22:49 04/01/19 09:33 Robitussin-Dm Syrup PO 10 ml Q4H PRN Administration Cough Dextrose 1,000 mls @ 100 mls/hr 03/31/19 03:36 Dextrose 5% 1,000 Ml IVPB PRN PRN Hypoglyce
[2019-04-01 13:24] LABS: Lactic Acid 1.2 mmol/L (0.7-2.1)
[2019-04-01] MEDS: MILRINONE LACTATE 20 MG in DEXTROSE 5% 80 ML 3 MG IV CONT (14:23)
--- NOTE | 2019-04-01 15:07 | WPDGICN ---
Assessment and Plan Assessment and plan (1) Elevated liver enzymes: Code(s): R74.8 - Abnormal levels of other serum enzymes Status: Acute Assessment and Plan: acute on chronic hepatitis, probably multifactorial from congestive hepatopathy (advanced heart failure), poor functional liver reserve (component of alcoholic liver disease), probably ischemic but normal lactic acid (monitoring vital signs). No portal vein thrombosis, normal bilirubin with normal bile duct size, no acetaminophen use. Also patient is complaining of respiratory viral infection last several days. Continue to monitor- also worsening renal failure with prolonged INR, holding xarelto. (2) Elev transaminase/LDH: Code(s): R74.0 - Nonspecific elevation of levels of transaminase and lactic acid dehydrogenase [LDH] Status: Acute Assessment and Plan: monitor labs, also get CK to check if rhabdo (3) CHF (congestive heart failure): Qualifiers: Heart failure chronicity: acute on chronic Heart failure type: unspecified Qualified Code(s): I50.9 - Heart failure, unspecified Code(s): I50.9 - Heart failure, unspecified Status: Acute Assessment and Plan: by cardiology, symptomatic (4) Acute kidney injury: Code(s): N17.9 - Acute kidney failure, unspecified Status: Acute (5) Elevated troponin: Code(s): R79.89 - Other specified abnormal findings of blood chemistry Status: Acute (6) CAD (coronary artery disease): Qualifiers: Coronary Disease-Associated Artery/Lesion type: unspecified vessel or lesion type [place] vs. transplanted heart: [place] heart Associated angina: angina presence unspecified Qualified Code(s): I25.10 - Atherosclerotic heart disease of [place] coronary artery without angina pectoris Code(s): I25.10 - Atherosclerotic heart disease of [place] coronary artery without angina pectoris Status: Acute (7) Alcohol abuse: Code(s): F10.10 - Alcohol abuse, uncomplicated Status: Acute Assessment and Plan: slowing down significantly few weeks ago. Consult date/time: 04/01/19 15:07 Reason for consult: hepatitis HPI: Landon Xiong is a 68 year old male with multiple comorbidities including CAD and systolic CHF with CABG and most recent cardiovascular intervention August 2018, DM, Afib on xarelto, alcoholic (normally 4-5 drinks daily for last 3-4 weeks cut down) who came here with worsening WAT[place] for several weeks but also cold symptoms (sinus congestion, yellowish sputum production and worsening shortness of breath last week). Admitted with CHF exacerbation, elevated BNP with marginal troponin. 03/31 noted significant elevation transaminases 3500's (on admission 100's), AST/ALT>1 c/w alcohol use, also high LDH and worsening renal failure (creatinine up to 2.7- admission 1.6), normal platelets, wbc, lactic acid and bilirubin. Abominal ultrasound showed normal bile duct size, post cholecystectomy, small ascites (not enough to get fluid), normal doppler of portal vein. Also prolonged INR 3 (now xarelto on hold). Cardiology on board. He has not been drinking much for last few weeks, denies using tylenol or herbals (only used robitussin few times before admission). Flu and hepatitis panel negative Review of Systems Constitutional: Constitutional: Reports weakness Eyes: Eyes: Denies change in vision ENT: Reports post nasal drip, Reports sinus pain, Reports sinus pressure and Reports sore throat Cardiovascular: Cardiovascular: Reports pedal edema, Reports dyspnea, Reports dyspnea on exertion and Reports orthopnea Respiratory: Respiratory: Reports change in phlegm color, Reports chest congestion, Reports cough and Reports excessive phlegm production Gastrointestinal: Gastrointestinal: Reports bloating and Denies dysphagia Genitourinary: Genitourinary: Denies dysuria Musculoskeletal: Musculoskeletal: Denies joint swelling Neurologic: Denies co
[2019-04-01 16:59] LABS: Glucose Point of Care 185 (65-105)
[2019-04-01 20:50] LABS: Glucose Point of Care 199 (65-105)
[2019-04-02] VITALS (15 sets, daily range): BP systolic 102–118; BP diastolic 58–86; PULSE 64–79; RESP 18–24; TEMP 36.4–37.2; O2SAT 92–96
[2019-04-02 05:36] LABS: Basophils Absolute Auto 0.1 K/mm3 (0.0-0.1); Basophils Percent Auto 1.3 % (0.2-1.2); Eosinophils Absolute Auto 1.2 K/mm3 (0-0.3); Eosinophils Percent Auto 17.3 % (0-4.4); Hematocrit 38.2 % (42.0-52.0); Hemoglobin 12.8 g/dL (14.0-18.0); Immature Granulocyte Absolute 0.02 K/mm3 (0.00-0.031); Immature Granulocyte Percent A 0.3 % (0-0.5); Lymphocytes Absolute Auto 1.07 K/mm3 (0.9-3.2); Mean Corpuscular HGB Conc 33.5 g/dl (32-36); Mean Corpuscular Hemoglobin 29.6 pg (26-34); Mean Corpuscular Volume 88.4 fl (80-100); Mean Platelet Volume 12.9 fl (7.4-10.4); Monocytes Absolute Auto 1.2 K/mm3 (0.1-0.6); Neutrophils Absolute Auto 3.5 K/mm3 (1.3-6.7); Neutrophils Percent Auto 49.1 % (45.5-73.1); Platelet Count Result 248 k/mm3 (150-375); Red Blood Count 4.32 M/mm3 (4.6-6.20); White Blood Count 7.1 K/mm3 (4.5-10.0)
[2019-04-02 05:47] LABS: Prothrombin Time 22.2 Seconds (11.1-14.7)
[2019-04-02 05:48] LABS: Creatine Kinase 144 U/L (55-170)
[2019-04-02 05:52] LABS: Albumin Level 3.4 g/dL (3.5-5.1); Alkaline Phosphatase 124 U/L (38-126); Bilirubin,Total 1.1 mg/dL (0.2-1.3); Blood Urea Nitrogen 68 mg/dL (9-20); Calcium 8.6 mg/dL (8.4-10.2); Carbon Dioxide 28 mmol/L (22-30); Chloride 94 mmol/L (98-107); Estimated CRCL calculation 19 ml/min; Estimated Glomerular Filt Rate 18; Glucose 146 mg/dL (75-110); Potassium 3.9 mmol/L (3.4-5.0); Sodium 134 mmol/L (137-145)
[2019-04-02 06:10] LABS: Alanine Aminotransferase 1516 U/L (4-50); Aspartate Amino Transferase 2325 U/L (17-59)
[2019-04-02 07:46] LABS: Glucose Point of Care 139 (65-105)
[2019-04-02] MEDS: FOLIC ACID 1 MG TABLET PO (08:29)
[2019-04-02] MEDS: THIAMINE HCL 100 MG TABLET PO (08:29)
[2019-04-02] MEDS: CLOPIDOGREL BISULFATE 75 MG TABLET PO (08:30)
[2019-04-02] MEDS: GUAIFENESIN/DEXTROMETHORPHAN 10 ML UDC PO ×2 (08:30→16:10)
--- NOTE | 2019-04-02 09:55 | WPDGIPROGNO ---
Progress Note: A&P Assessment and Plan (1) Elev transaminase/LDH: Code(s): R74.0 - Nonspecific elevation of levels of transaminase and lactic acid dehydrogenase [LDH] Status: Acute Assessment and Plan: it seems had acute insult 03/30- (worsening renal failure with abrupt elevation of transaminases), probably cardiac related but also component of heavy alcohol intake previously. LFT's slowly trending down, still normal bilirubin. (2) Elevated liver enzymes: Code(s): R74.8 - Abnormal levels of other serum enzymes Status: Acute (3) CHF (congestive heart failure): Qualifiers: Heart failure chronicity: acute on chronic Heart failure type: unspecified Qualified Code(s): I50.9 - Heart failure, unspecified Code(s): I50.9 - Heart failure, unspecified Status: Acute Assessment and Plan: cardiology started him on milrinone (4) HTN (hypertension): Code(s): I10 - Essential (primary) hypertension Status: Acute (5) Acute kidney injury: Code(s): N17.9 - Acute kidney failure, unspecified Status: Acute Assessment and Plan: monitore renal function, worsening. No evidence of rhabdo. (6) Alcohol abuse: Code(s): F10.10 - Alcohol abuse, uncomplicated Status: Acute Subjective Interval history: no major events, still with dyspnea on exertion, orthopnea and cough with thick sputum (he could not sleep well last night). Review of Systems Constitutional: Constitutional: Reports weakness Eyes: Eyes: Denies change in vision ENT: Reports post nasal drip, Reports sinus pain, Reports sinus pressure and Reports sore throat Cardiovascular: Cardiovascular: Reports pedal edema, Reports dyspnea, Reports dyspnea on exertion and Reports orthopnea Respiratory: Respiratory: Reports change in phlegm color, Reports chest congestion, Reports cough and Reports excessive phlegm production Gastrointestinal: Gastrointestinal: Reports bloating and Denies dysphagia Genitourinary: Genitourinary: Denies dysuria Musculoskeletal: Musculoskeletal: Denies joint swelling Neurologic: Denies confusion Psychiatric: Psychiatric: Denies memory loss Endocrine: Endocrine: Denies cold intolerance Hematologic/Lymphatic: Hematologic/Lymphatic: Denies lymphadenopathy Allergic/Immunologic: Allergic/Immunologic: Denies urticaria Exam Const: Other: comfortable only if lying still, using oxygen HENMT: General nose exam: no epistaxis Eyes: General: appearance normal, both eyes and all related structures Neck: Neck: supple Resp: Auscultation: rhonchi and diminished lung sounds (bases) Cardio: Rate: regular rate GI: Inspection: distended Palpation (GI): Yes soft and No tender Auscultation: normal bowel sounds Skin: General skin exam: no erythema Neuro: Speech: normal speech Motor exam (neuro): muscle tone normal throughout Extrem: Right lower extremity: edema Left lower extremity: edema Psych: Mental Status: mental status grossly normal Objective Data Vital Signs Vital Signs: Vital Signs - 24 hr 04/01/19 10:00 04/01/19 12:00 04/01/19 12:08 Temperature 97.3 F L Pulse Rate 63 63 63 Respiratory Rate 20 Blood Pressure 103/54 L Pulse Oximetry 98 04/01/19 14:00 04/01/19 14:58 04/01/19 15:09 Temperature Pulse Rate 60 Respiratory Rate Blood Pressure Pulse Oximetry 96 95 04/01/19 16:00 04/01/19 16:53 04/01/19 18:00 Temperature 97.3 F L Pulse Rate 64 66 66 Respiratory Rate 23 H Blood Pressure 106/54 L Pulse Oximetry 95 04/01/19 20:00 04/01/19 22:00 04/01/19 23:54 Temperature 97.4 F L 97.9 F Pulse Rate 69 89 Respiratory Rate 22 H 20 22 H Blood Pressure 101/55 L 111/57 L Pulse Oximetry 95 96 04/02/19 00:00 04/02/19 02:00 04/02/19 03:46 Temperature Pulse Rate 67 67 Respiratory Rate 20 Blood Pressure Pulse Oximetry 04/02/19 04:00 04/02/19 06:00 04/02/19 08:00 Temperat
[2019-04-02 11:52] LABS: Glucose Point of Care 230 (65-105)
--- NOTE | 2019-04-02 12:33 | PM.PNCARD ---
Progress Note: A&P Additional Plan . Concerning situation and that the patient appears to have developed cardiorenal syndrome with low cardiac output. Despite the fact that he clinically does not feel the in any distress it is very concerning that his creatinine continues to climb. We should consider transferring this patient to a higher level of heart failure care since he is experiencing end-organ dysfunction related to low cardiac output and he also would have to be considered a candidate for a ICD since is ejection fraction rather than improving following recent revascularization has declined further. I would consider starting Entresto as his basal dilator of choice as his lisinopril has been held since admission and despite this renal function has continued to decline. This is almost certainly a low cardiac output issue rather than a renal vascular issue. Time Spent With Patient Time with patient: 15 - 25 minutes Subjective Interval history: Sitting in bed eating lunch when I entered the room to see him. Does not appear to be in any significant distress. Indicates shortness of breath is improved compared to admission on Tuesday. Exam Const: General: comfortable and no acute distress HENMT: Mouth: Yes moist mucous membranes Eyes: Sclera: sclerae normal Neck: Neck: no JVD (2 cm elevation of jugular venous pressure) Resp: Effort & Inspection: normal respiratory effort Other: Dullness at the bases bilaterally Cardio: Rate: regular rate Rhythm: regular rhythm Skin: General skin exam: normal color Extrem: General: normal to inspection Objective Data Vital Signs Vital Signs: Vital Signs - 24 hr 04/01/19 14:00 04/01/19 14:58 04/01/19 15:09 Temperature Pulse Rate 60 Respiratory Rate Blood Pressure Pulse Oximetry 96 95 04/01/19 16:00 04/01/19 16:53 04/01/19 18:00 Temperature 36.3 C L Pulse Rate 64 66 66 Respiratory Rate 23 H Blood Pressure 106/54 L Pulse Oximetry 95 04/01/19 20:00 04/01/19 22:00 04/01/19 23:54 Temperature 36.3 C L 36.6 C Pulse Rate 69 89 Respiratory Rate 22 H 20 22 H Blood Pressure 101/55 L 111/57 L Pulse Oximetry 95 96 04/02/19 00:00 04/02/19 02:00 04/02/19 03:46 Temperature Pulse Rate 67 67 Respiratory Rate 20 Blood Pressure Pulse Oximetry 04/02/19 04:00 04/02/19 06:00 04/02/19 08:00 Temperature 36.4 C 36.6 C Pulse Rate 67 65 70 Respiratory Rate 20 24 H Blood Pressure 103/58 L 102/86 Pulse Oximetry 94 L 96 04/02/19 08:26 04/02/19 10:00 04/02/19 12:00 Temperature Pulse Rate 79 69 75 Respiratory Rate Blood Pressure Pulse Oximetry Intake/Output Intake/Output: Intake & Output 03/30/19 03/31/19 04/01/19 04/02/19 23:59 23:59 23:59 23:59 Intake Total 700 1170 2553.5 499.5 Balance 700 1170 2553.5 499.5 Meds/Results Medications: Active Medications Generic Name Dose Route Start Last Admin Trade Name Freq PRN Reason Stop Dose Admin Carvedilol 12.5 mg 04/01/19 21:00 04/02/19 08:26 Coreg PO Not Given Q12HR RUSH Chlordiazepoxide HCl 25 mg 03/31/19 10:22 Librium Po PO Q6H PRN withdrawal/anxiety Clopidogrel Bisulfate 75 mg 03/31/19 09:00 04/02/19 08:30 Plavix PO 75 mg DAILY RUSH Administration Dextrose 12.5 gm 03/31/19 03:36 Dextrose 50% Syringe IV PUSH PRN PRN Hypoglycemia Protocol Folic Acid 1 mg 03/31/19 10:25 04/02/19 08:29 Folic Acid PO 1 mg DAILY RUSH Administration Glucagon 1 mg 03/31/19 03:36 Glucagon For Inj IM PRN PRN Hypoglycemia Protocol Glucose 15 gm 03/31/19 03:36 Glutose 15 PO PRN PRN Hypoglycemia Protocol Guaifenesin/Dextromethorphan 10 ml 03/31/19 22:49 04/02/19 08:30 Robitussin-Dm Syrup PO 10 ml Q4H PRN Administration Cough Dextrose 1,000 mls @ 100 mls/hr 03/31/19 03:36 Dextrose 5% 1,000 Ml IVPB PRN PRN Hypoglycemia Protocol
[2019-04-02] MEDS: INSULIN ASPART (*BKC) 100 UNITS/ML SUB-Q (12:34)
[2019-04-02 17:28] LABS: Glucose Point of Care 151 (65-105)
--- NOTE | 2019-04-02 18:09 | PM.IMPN ---
Objective Data Vital Signs Vital Signs: Vital Signs - 24 hr 04/01/19 20:00 04/01/19 22:00 04/01/19 23:54 Temperature 97.4 F L 97.9 F Pulse Rate 69 89 Respiratory Rate 22 H 20 22 H Blood Pressure 101/55 L 111/57 L Pulse Oximetry 95 96 04/02/19 00:00 04/02/19 02:00 04/02/19 03:46 Temperature Pulse Rate 67 67 Respiratory Rate 20 Blood Pressure Pulse Oximetry 04/02/19 04:00 04/02/19 06:00 04/02/19 08:00 Temperature 97.6 F 97.9 F Pulse Rate 67 65 70 Respiratory Rate 20 24 H Blood Pressure 103/58 L 102/86 Pulse Oximetry 94 L 96 04/02/19 08:26 04/02/19 10:00 04/02/19 12:00 Temperature 97.6 F Pulse Rate 79 69 66 Respiratory Rate 20 Blood Pressure 109/60 Pulse Oximetry 04/02/19 14:00 04/02/19 16:00 04/02/19 16:45 Temperature 98.9 F Pulse Rate 66 71 64 Respiratory Rate 20 Blood Pressure 113/69 Pulse Oximetry 92 L Intake/Output Intake/Output: Intake & Output 03/30/19 03/31/19 04/01/19 04/02/19 23:59 23:59 23:59 23:59 Intake Total 700 1170 2553.5 779.0 Balance 700 1170 2553.5 779.0 Meds/Results Medications: Active Medications Generic Name Dose Route Start Last Admin Trade Name Freq PRN Reason Stop Dose Admin Carvedilol 12.5 mg 04/01/19 21:00 04/02/19 08:26 Coreg PO Not Given Q12HR RUSH Chlordiazepoxide HCl 25 mg 03/31/19 10:22 Librium Po PO Q6H PRN withdrawal/anxiety Clopidogrel Bisulfate 75 mg 03/31/19 09:00 04/02/19 08:30 Plavix PO 75 mg DAILY RUSH Administration Dextrose 12.5 gm 03/31/19 03:36 Dextrose 50% Syringe IV PUSH PRN PRN Hypoglycemia Protocol Folic Acid 1 mg 03/31/19 10:25 04/02/19 08:29 Folic Acid PO 1 mg DAILY RUSH Administration Glucagon 1 mg 03/31/19 03:36 Glucagon For Inj IM PRN PRN Hypoglycemia Protocol Glucose 15 gm 03/31/19 03:36 Glutose 15 PO PRN PRN Hypoglycemia Protocol Guaifenesin/Dextromethorphan 10 ml 03/31/19 22:49 04/02/19 16:10 Robitussin-Dm Syrup PO 10 ml Q4H PRN Administration Cough Dextrose 1,000 mls @ 100 mls/hr 03/31/19 03:36 Dextrose 5% 1,000 Ml IVPB PRN PRN Hypoglycemia Protocol Milrinone Lactate 20 mg/ 100 mls @ 3.026 mls/hr 04/01/19 14:00 04/02/19 17:40 Dextrose IV CONT 0.125 mcg/kg/min .Q24H RUSH 3 mls/hr Infusion 0.125 MCG/KG/MIN Insulin Aspart 3 - 6 units 03/31/19 08:00 04/02/19 17:15 Novolog SUB-Q Not Given TIDWM RUSH Protocol Isosorbide Mononitrate 60 mg 03/31/19 09:00 04/02/19 08:26 Imdur PO Not Given DAILY RUSH Ondansetron HCl 4 mg 03/30/19 23:12 Zofran Inj IV PUSH Q4H PRN Nausea Rivaroxaban 15 mg 03/31/19 18:00 03/31/19 17:22 Xarelto PO 15 mg QPM RUSH Administration Thiamine HCl 100 mg 03/31/19 10:25 04/02/19 08:29 Vitamin B-1 PO 100 mg QAM RUSH Administration Radiology Results: ITS Impressions Abdomen/Pelvis CT 03/30/19 21:57 IMPRESSION: 1. Moderate right and small left pleural effusions. Bibasilar compressive atelectasis. 2: Moderate ascites. 3: Hepatic steatosis. 4: Cardiomegaly. Surgical changes are seen consistent with CABG. Carotid Doppler Study 03/31/19 16:05 IMPRESSION: 1. Less than 50% stenosis in the right internal carotid artery by sonographic criteria. 2. Less than 50% stenosis in the left internal carotid artery by sonographic criteria. Paracentesis Ultrasound 03/31/19 16:27 IMPRESSION: 1: Hepatic steatosis. 2: Status post cholecystectomy. 3: Small amount of ascites. Volume insufficient for paracentesis. Consider recheck of fluid and 3-4 days. Upper Quadrant Ultrasound 03/31/19 16:27 IMPRESSION: 1: Hepatic steatosis. 2: Status post cholecystectomy. 3: Small amount of ascites. Volume insufficient for paracentesis. Consider recheck of fluid and 3-4 days. Chest X-Ray 04/01/19 12:37
--- NOTE | 2019-04-02 18:51 | PM.TDS ---
Transfer Discharge Sum: Prov Provider Date of admission: 04/01/19 18:47 Primary care physician: Jeffrey Jerome MD Admitting clinician: Adenike Sanchez DO Consults: 03/30/19 23:14 Consult to Physician Routine Comment: Consulting Provider: Kobi Patterson Reason for consultation: chf Has provider been notified: Yes 04/01/19 08:13 Consult to Physician Routine Comment: Consulting Provider: Neal Davis marketing campaign analyst/MD group to consult: Dr Zhong Reason for consultation: elevated LFTs Has provider been notified: Yes Attending physician on discharge: Yuval Choudhury Discharging clinician: Yuval Choudhury Anticipated date of transfer: 04/02/19 Receiving physician/facility: [facility]; Dr Neville is accepting provider DS: Diagnosis Admitting Diagnosis Admitting Diagnosis: Heart failure, unspecified Discharge Diagnosis (1) CHF (congestive heart failure): Qualifiers: Heart failure chronicity: acute on chronic Heart failure type: unspecified Qualified Code(s): I50.9 - Heart failure, unspecified Code(s): I50.9 - Heart failure, unspecified Status: Acute (2) Elevated troponin: Code(s): R79.89 - Other specified abnormal findings of blood chemistry Status: Acute (3) Nausea and vomiting: Qualifiers: Vomiting Intractability: non-intractable Vomiting type: unspecified Qualified Code(s): R11.2 - Nausea with vomiting, unspecified Code(s): R11.2 - Nausea with vomiting, unspecified Status: Acute (4) Atrial fibrillation: Code(s): I48.91 - Unspecified atrial fibrillation Status: Acute (5) Elevated liver enzymes: Code(s): R74.8 - Abnormal levels of other serum enzymes Status: Acute (6) Hepatic steatosis: Code(s): K76.0 - Fatty (change of) liver, not elsewhere classified Status: Acute (7) Acute kidney injury: Code(s): N17.9 - Acute kidney failure, unspecified Status: Acute (8) Ascites: Code(s): R18.8 - Other ascites Status: Acute (9) Sleep apnea: Code(s): G47.30 - Sleep apnea, unspecified Status: Acute (10) Diabetes mellitus: Code(s): E11.9 - Type 2 diabetes mellitus without complications Status: Acute (11) CAD (coronary artery disease): Qualifiers: Associated angina: angina presence unspecified Coronary Disease-Associated Artery/Lesion type: unspecified vessel or lesion type [place] vs. transplanted heart: [place] heart Qualified Code(s): I25.10 - Atherosclerotic heart disease of [place] coronary artery without angina pectoris Code(s): I25.10 - Atherosclerotic heart disease of [place] coronary artery without angina pectoris Status: Acute Transfer Discharge Sum: Med Medications Active and Home Medications: Home Medications amlodipine 10 mg PO DAILY 03/31/19 [History Confirmed 03/31/19] atorvastatin 80 mg PO HS 03/31/19 [History Confirmed 03/31/19] carbamazepine 200 mg PO Q12H 03/31/19 [History Confirmed 03/31/19] carvedilol 25 mg PO BID 03/31/19 [History Confirmed 03/31/19] clopidogrel 75 mg PO DAILY 03/31/19 [History Confirmed 03/31/19] empagliflozin [Jardiance] 10 mg PO EVERY OTHER DAY 03/31/19 [History Confirmed 03/31/19] fenofibrate 160 mg PO DAILY 03/31/19 [History Confirmed 03/31/19] furosemide 40 mg PO BID 03/31/19 [History Confirmed 03/31/19] isosorbide mononitrate 60 mg PO DAILY 03/31/19 [History Confirmed 03/31/19] lisinopril 40 mg PO QPM 03/31/19 [History Confirmed 03/31/19] metformin 500 mg PO BID 03/31/19 [History Confirmed 03/31/19] nitroglycerin 0.4 mg SUBLINGUAL Q5M PRN 03/31/19 [History Confirmed 03/31/19] rivaroxaban [Xarelto] 20 mg PO QPM 03/31/19 [History Confirmed 03/31/19] Active Medications Carvedilol (Coreg) 12.5 mg PO Q12HR [facility] Last Admin: 04/02/19 08:26 Dose: Not Given Documented by: Chlordiazepoxide HCl (Librium Po) 25 mg PO Q6H PRN PRN Reason: withdrawal/anxiety Clopidogrel Bi
[2019-04-02] MEDS: MILRINONE LACTATE 20 MG in DEXTROSE 5% 80 ML 3 MG IV CONT (19:23)
[2019-04-02] MEDS: carvediloL 12.5 MG TABLET PO (21:18)
--- NOTE | 2019-04-02 21:40 | PC.NURSE ---
Patient leaving to [place]. Report had been called. [place] notified of patient departure. Report given to EMS. All patient belongings gathered.
[2019-04-05 16:18] LABS: Carbamazepine Tegretol 8.6 mcg/mL (4.0-12.0)
== END 2019-04-02 21:30 | disposition short-term general hospital (02) | DRG 291 ==
LOC: ANHED 21:15 → ANHIMU 23:30
PROVIDERS: Internal Medicine Gastroenterology; Internal Medicine Interventional Cardiology; Admitting Provider Internal Medicine; Emergency Provider Emergency Medicine; PCP Family Medicine; Visit Provider Internal Medicine
DX: I13.0 Hypertensive heart and chronic kidney disease with heart failure and stage 1 through stage 4 chronic kidney disease, or unspecified chronic kidney disease (principal); I50.23 Acute on chronic systolic (congestive) heart failure; N17.9 Acute kidney failure, unspecified; R18.8 Other ascites; N18.9 Chronic kidney disease, unspecified; Z87.891 Personal history of nicotine dependence; I48.91 Unspecified atrial fibrillation; I25.10 Atherosclerotic heart disease of native coronary artery without angina pectoris; Z95.5 Presence of coronary angioplasty implant and graft; Z95.1 Presence of aortocoronary bypass graft; E11.22 Type 2 diabetes mellitus with diabetic chronic kidney disease; I25.2 Old myocardial infarction; G40.909 Epilepsy, unspecified, not intractable, without status epilepticus; K76.0 Fatty (change of) liver, not elsewhere classified; R74.8 Abnormal levels of other serum enzymes; G47.30 Sleep apnea, unspecified; F10.10 Alcohol abuse, uncomplicated
CPT/HCPCS: 36415; 49083; 71045; 71046; 74019; 74177; 76705; 80053; 80156; 81001; 82150; 82550; 83605; 83615; 83690; 83880; 84484; 85025; 85610; 85730; 87070; 87205; 87804; 93005; 93880; 96365; 96366; 96375; 96376; 99285; A9270; C8929; G0378; J1815; J1940; J2260; J2405; J7030; Q9957; Q9967